=== PATIENT | female | born 1990 | race Caucasian/White ===

== ENCOUNTER 2023-03-07 08:24 | Outpatient (AMB) | payer OTHER, SELFPAY ==
--- NOTE | 2023-03-07 08:29 | A.OFFVIS_ITS ---
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 States both are as bad. States symptoms started about 2 years and has worsen. Patient has tried a cortisone injection with her neurologist about 4-5 months ago with good improvement. Patient is interested in repeat injection. EMG done. Allergies cimetidine [From Tagamet] Allergy (Severe, Verified 03/07/23 08:32) hives montelukast [From Singulair] Allergy (Severe, Verified 03/07/23 08:32) make pt slow penicillin G Allergy (Severe, Verified 03/07/23 08:32) Hives escitalopram [From Lexapro] Allergy (Intermediate, Verified 03/07/23 08:32) twitch morphine Allergy (Intermediate, Verified 03/07/23 08:32) hives HPI HPI Comments History of Present Illness Details Symptoms on/off, about 2 years, progressing though. EMG as below, mild CTS. Bilateral, right handed. Reports numbness 5th, 4th and 1st digit. Numb when holding something for too long. Occasional weakness, trouble opening things. Question thenar eminence flattening? Throbbing in both elbows, will wake her up at night. 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 MSK: Inspection reveals appropriate head and neck positioning. Cervical ROM was full. Spurling's sign negative. Bilateral elbow ROM WNL. No ligamentous laxity or crepitance. No increased effusion. No tenderness. No joint effusion noted. No deformity noted. No intrinsic hand weakness noted. Questioning flat thenar eminence bilateral. Saravanan test mildly positive right. Carpal compression test positive bilateral. Tinel sign positive bilateral elbow. Strength is 5/5 in all muscle groups tested. No increased tone noted. Neurological: Neurologic examination of the upper and lower extremities was nonfocal with intact sensation, muscle stretch reflexes and without focal motor deficits . Villagran?s negative bilaterally. Gait is non-antalgic without loss of balance. Results Reviewed Results Reviewed: I independently reviewed the results of the following: EMG done by Dr. Berger 03/2022 showed mild bilateral CTS. I reviewed records from the following: Neurology Assessment & Plan Assessment & Plan (1) Carpal tunnel syndrome on both sides: Code(s): G56.03 - Carpal tunnel syndrome, bilateral upper limbs (2) Ulnar neuropathy at elbow: Code(s): G56.20 - Lesion of ulnar nerve, unspecified upper limb Plan Previously diagnosed mild bilateral Carpal Tunnel Syndrome based on EMG done last year. Injections provided short-term relief only. Symptoms are progressing. She presents with signs of possible ulnar neuropathy as well. I believe it is reasonable to repeat NCS/EMG again and see if results have progressed. We talked about treatment options from conservative, injections again, versus surgery. She understands that injections are only temporary relief and surgery might provide longer lasting/permanent cure. While waiting for repeat NCS, continue to wear wrist splints especially at night. If there is any tenderness over de Quervain, make apply ice and consider a thumb spica splint Assessment and plan discussed with patient, and patient was agreeable. All questions were answered thoroughly. Odalis Cardenas MD, ABA Board Certified, [place] [employer] and Rehabilitation (ABPMR) Board Certified, [place] Board [employer] Electrodiagnostic [employer] (ABEM) Orders: Orders NE electromyogram (EMG) Today G56.03 - Carpal tunnel syndrome, bilateral upper limbs, G56.20 - Lesion of ulnar nerve, unspecified upper limb NE nerve conduction velocity Today G56.03 - Carpal tunnel syndrome, bilateral upper limbs, G56.20 - Lesion of ulnar nerve, unspecified upper limb Coding Level of Care Code New Pt Level 4 (19268) Diagnoses Carpal tunnel syndrome on both sides G56.03 Ulnar neuropathy at elbow G56.20
[2023-03-07 08:31] VITALS: BMI 39.0
== END 2023-03-07 09:07 | disposition home or self-care (01) ==
PROVIDERS: Visit Provider Physical Medicine & Rehabilitation
DX: G56.03 Carpal tunnel syndrome, bilateral upper limbs (principal); G56.20 Lesion of ulnar nerve, unspecified upper limb
CPT/HCPCS: 99204

== ENCOUNTER → 2023-03-07 08:24 | Outpatient (BNVA) | payer OTHER, SELFPAY | PROVIDERS: Visit Provider Physical Medicine & Rehabilitation ==

== ENCOUNTER 2023-04-03 15:00 | Outpatient (REF) | payer OTHER, SELFPAY ==
--- NOTE | 2023-04-03 15:02 | EMG_ITS ---
Chief complaint: Continued hand pain, right worse than left Reason for referral: Evaluate for carpal tunnel Procedure done: NCS only, compare from previous Precautions and/or limitations: None The limb temperature was monitored continuously and remained between 32-36 degrees C during the performance of the NCS. Nerve Conduction Studies Anti Sensory Summary Table ?Stim Site NR Onset (ms) Norm Onset (ms) Peak (ms) Norm Peak (ms) O-P Amp (?V) Norm O-P Amp Site1 Site2 Delta-0 (ms) Dist (cm) Evin (m/s) Norm Evin (m/s) Left Median Anti Sensory (2nd Digit) Wrist ? 2.7 3.6 <3.6 46.4 >10 Wrist 2nd Digit 2.7 14.0 52 Right Median Anti Sensory (2nd Digit) Wrist ? 3.1 3.7 <3.6 14.2 >10 Wrist 2nd Digit 3.1 14.0 45 Right Radial Anti Sensory (Thumb) Forearm ? 1.7 2.1 <3.1 39.9 Forearm Thumb 1.7 0.0 Left Ulnar Anti Sensory (5th Digit) Wrist ? 2.3 2.9 <3.7 24.6 >15.0 Wrist 5th Digit 2.3 14.0 61 Right Ulnar Anti Sensory (5th Digit) Wrist ? 1.7 3.0 <3.7 15.3 >15.0 Wrist 5th Digit 1.7 14.0 82 Motor Summary Table ?Stim Site NR Onset (ms) Norm Onset (ms) O-P Amp (mV) Norm O-P Amp iAmp (mV) Amp (1st) (%) Site1 Site2 Delta-0 (ms) Dist (cm) Evin (m/s) Norm Evin (m/s) Left Median Motor (Abd Poll Brev) Wrist ? 4.3 <3.9 8.0 >4.5 9.3 100.0 Elbow Wrist 3.3 19.0 58 >45 Elbow ? 7.6 6.8 8.3 85.0 Right Median Motor (Abd Poll Brev) Wrist ? 4.5 <3.9 5.6 >4.5 6.3 100.0 Elbow Wrist 3.1 18.0 58 >45 Elbow ? 7.6 9.2 10.5 164.3 Left Ulnar Motor (Abd Dig Minimi) Wrist ? 2.3 <3.0 8.5 >5 9.3 100.0 B Elbow Wrist 2.6 16.0 62 >45 B Elbow ? 4.9 8.4 9.3 98.8 A Elbow B Elbow 1.4 10.0 71 >45 A Elbow ? 6.3 8.1 9.0 95.3 Right Ulnar Motor (Abd Dig Minimi) Wrist ? 2.4 <3.0 5.6 >5 6.2 100.0 B Elbow Wrist 2.8 16.0 57 >45 B Elbow ? 5.2 5.5 6.2 98.2 A Elbow B Elbow 1.2 10.0 83 >45 A Elbow ? 6.4 5.4 6.1 96.4 FINDINGS: Bilateral median motor nerves showed prolonged distal latency, normal amplitude and normal conduction velocity. Evidence of possible right Alfredo Vlad anastomosis was seen, which is a normal anatomic variant. Bilateral median sensory nerve showed prolonged peak latency. All other nerves tested were within normal. IMPRESSION: 1. This is an abnormal study. 2. There is electrodiagnostic evidence for bilateral moderate-severe median neuropathy at the wrist, consistent with Carpal Tunnel Syndrome. 3. There is no electrodiagnostic evidence for ulnar neuropathy. CLINICAL COMMENT: Shows progression of Carpal Tunnel Syndrome as compared to last year. Patient will be referred to Dr. De Luna for discussion of surgical management. Thank you for your kind referral. Odalis Cardenas MD, ABA Board Certified, [place] Board [employer] and [employer] (ABPMR) Board Certified, [place] Board [employer] Electrodiagnostic [employer] (ABEM) CODIN MTDD
== END 2023-04-03 15:01 | disposition home or self-care (01) ==
LOC: HO.NEURO 15:00
PROVIDERS: Visit Provider Physical Medicine & Rehabilitation
DX: G56.03 Carpal tunnel syndrome, bilateral upper limbs (principal); G56.20 Lesion of ulnar nerve, unspecified upper limb
CPT/HCPCS: 95886; 95911

== ENCOUNTER → 2023-04-03 15:02 | Outpatient (BNV) | payer OTHER, SELFPAY | PROVIDERS: Visit Provider Physical Medicine & Rehabilitation | DX: G56.13 Other lesions of median nerve, bilateral upper limbs (principal); G56.03 Carpal tunnel syndrome, bilateral upper limbs | CPT/HCPCS: 95911 ==

== ENCOUNTER 2023-05-29 08:26 | Outpatient (AMB) | payer OTHER, SELFPAY ==
[2023-05-29 08:33] VITALS: BMI 39.0
--- NOTE | 2023-05-29 08:33 | A.OFFVIS_ITS ---
Intake Vital Signs 05/29/23 08:33 Height 5 ft 3 in Weight 220 lb BMI 39.0 Intake Visit Reasons: o/v- B/L CTS INJ Intake Note: Lydia 32 yr old female presents today for her CTS bilateral hand injection. States she is aware she needs surgery however she would like to gave an injection in bilateral hands until she is more prepare after the holidays and has to arrange care for her son who is autistic. She also has an appt with Dr. De Luna to discuss surgery in June. Allergies cimetidine [From Tagamet] Allergy (Severe, Verified 05/29/23 08:39) hives montelukast [From Singulair] Allergy (Severe, Verified 05/29/23 08:39) make pt slow penicillin G Allergy (Severe, Verified 05/29/23 08:39) Hives escitalopram [From Lexapro] Allergy (Intermediate, Verified 05/29/23 08:39) twitch morphine Allergy (Intermediate, Verified 05/29/23 08:39) hives Medication List - Last Reconciled 05/29/23 by Odalis Cardenas MD aspirin 162 mg PO DAILY celecoxib (Celebrex) 50 mg PO BID fluoxetine (Prozac) 40 mg PO DAILY HPI HPI Comments History of Present Illness Details She would like to have injection bilateral today. She's had this before without complications, from Neurology. EMG done by me: IMPRESSION: 1. This is an abnormal study. 2. There is electrodiagnostic evidence f or bilateral moderate-severe median neuropathy at the wrist, consistent with Carpal Tunnel Syndrome. 3. There is no electrodiagnostic evidenc e for ulnar neuropathy. CLINICAL COMMENT: Shows progression of Carpal Tunnel Syndrome as compared to last year. 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 Patient places right hand palm up. Wrist is cleansed with betadine solution. A 25 gauge needle is inserted just ulnar to the palmaris longus tendon and at the proximal wrist crease. The needle is inserted at a 30- degree angle and directed towards the ring finger. A solution containing 20mg Kenalog is injected. Same procedure repeated for left side Patient tolerated procedure well without complications. Post-injection instructions given. 48519-[id number] Tunnel Injection, therapeutic (Bilateral, modifier 50) All charges added?: Procedure code (CPT) selection complete Office Meds triamcinolone acetonide 40 mg/mL suspension for injection Performing Provider: Odalis Cardenas MD Performing Location: [facility] [place] [facility] Documented (not given) by: Odalis Cardenas MD on 05/29/23 09:01 Dose Route Admin Location Dispensed Lot Number Expiration Date NDC General Service Officer 40 mg Tendon Sheath Inj. mL Assessment & Plan Assessment & Plan (1) Carpal tunnel syndrome on both sides: Code(s): G56.03 - Carpal tunnel syndrome, bilateral upper limbs Plan Tolerated procedure well. She is to meet Dr. De Luna in June. Assessment and plan discussed with patient, and patient was agreeable. All questions were answered thoroughly. Odalis Cardenas MD, ABA Board Certified, [place] Board [employer] and Rehabilitation (ABPMR) Board Certified, [place] Board [employer] Electrodiagnostic Medicine (ABEM) Orders: Orders Trigger Point Injection Today G56.03 - Carpal tunnel syndrome, bilateral upper limbs, M79.18 - Myalgia, other site Medications: New triamcinolone acetonide 40 mg Tendon Sheath Inj. ONCE 1 mL 0RF G56.03 - Carpal tunnel syndrome, bilateral upper limbs, M79.18 - Myalgia, other site Coding Level of Care Code Procedure Only Diagnoses Carpal tunnel syndrome on both sides G56.03 CPT Codes Therapeutic Injection - Ther Injection 3: [id number]-Kyuxvx Tunnel Injection, therapeutic ([id number])
== END 2023-05-29 09:03 | disposition home or self-care (01) ==
PROVIDERS: Visit Provider Physical Medicine & Rehabilitation
DX: G56.03 Carpal tunnel syndrome, bilateral upper limbs (principal)
CPT/HCPCS: 20526

== ENCOUNTER → 2023-05-29 08:26 | Outpatient (BNVA) | payer OTHER, SELFPAY | PROVIDERS: Visit Provider Physical Medicine & Rehabilitation | DX: G56.03 Carpal tunnel syndrome, bilateral upper limbs (principal) | CPT/HCPCS: 20526; J3301 ==

== ENCOUNTER 2023-06-18 15:02 | Outpatient (AMB) | payer OTHER, SELFPAY ==
[2023-06-18 15:06] VITALS: BMI 39.0
--- NOTE | 2023-06-18 15:06 | MHC.OFFVIS ---
Intake Vital Signs 06/18/23 15:06 Height 5 ft 3 in Weight 220 lb BMI 39.0 Intake Visit Reasons: OV- B/L CTS Dx Surgery Intake Note: Lydia 32 yr old female presents today for a follow up visit s/p bilateral CTS injection with Dr. De Luna. Right hand is worse. States injection did not help and she would like to discuss surgical intervention. EMG done. Allergies cimetidine [From Tagamet] Allergy (Severe, Verified 06/18/23 15:13) hives montelukast [From Singulair] Allergy (Severe, Verified 06/18/23 15:13) make pt slow penicillin G Allergy (Severe, Verified 06/18/23 15:13) Hives escitalopram [From Lexapro] Allergy (Intermediate, Verified 06/18/23 15:13) twitch morphine Allergy (Intermediate, Verified 06/18/23 15:13) hives HPI OV- B/L CTS Dx Surgery HPI Details Lydia is a 32 year old right hand dominant woman who presents for a NCS review of her bilateral hand numbness. She complains of numbness in the thumb, index and middle fingers bilaterally, R>L. Symptoms intermittent, but daily, worse at night. 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 She says she has numbness in her small fingers, mostly at night, and she has been sleeping with wrist braces on, which helps her somewhat. She has a hx of carpal tunnel injections in the past, her most recent was done on 05/29/[address] Son. She says these most recent injections were not helpful and she would like to discuss surgery. She had her most recent injection as she has a young autistic son and wanted some relief before she could meet with me to discuss surgery. 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 Review of Systems Const All systems reviewed & are unremarkable except as noted in HPI and below Physical Exam Vital Signs: BMI result Body Mass Index 39.0 Const General: cooperative, healthy appearing and no acute distress Orientation/consciousness: patient oriented x3 HEENT Head: Yes normocephalic and Yes atraumatic Eyes EOM: EOMs intact bilaterally Resp Effort & Inspection: normal respiratory effort and able to speak in complete sentences Cardio Jugular venous distension: no JVD Skin General skin exam: turgor normal Rashes: no rashes Neuro General: patient oriented x3 Extrem Other: Evaluation of Bilateral Upper Extremity: The patient is alert, oriented, and in no acute distress Neuro: Median, Ulnar, Radial nerves motor and sensory intact and sensation is normal to the tips of all digits today in clinic No thenar or intrinsic wasting Good APB muscle belly firing and good finger cross Vascular: Cap refill brisk ROM: She can make a fist and extend all her digits No locking or catching Skin: No lacerations or abrasions. General: No Ecchymosis. No Erythema or evidence of infection. Nerve Conduction Study: IMPRESSION: 1. This is an abnormal study. 2. There is electrodiagnostic evidence for bilateral moderate-severe median neuropathy at the wrist, consistent with Carpal Tunnel Syndrome. 3. There is no electrodiagnostic evidence for ulnar neuropathy. CLINICAL COMMENT: Shows progression of Carpal Tunnel Syndrome as compared to last year. Odalis Cardenas MD, ABA 04/04/23 Psych Appearance: grossly normal Affect: normal affect Attitude: cooperative Assessment & Plan Assessment & Plan (1) Carpal tunnel syndrome on both sides: Code(s): G56.03 - Carpal tunnel syndrome, bilateral upper limbs Plan Assessment & Plan: 1. Right carpal tunnel syndrome, moderate-severe Symptoms intermittent, but daily, worse at night S/P steroid injection on 05/29/[address] Son I educated her about this condition I discussed operative and non-operative treatment options The patient would like to proceed with surgery, beginning with the right side The risks and benefits of operative treatment were discussed with the patient and the patient wishes to proceed with surgery. These risks include, but are not limited to risk of damage to blood vessels, nerves, tendons, infection, recurrence, incomplete relief of preoperative symptoms, persistent pain, possible need for further surgery and the risks associated with regional blocks and anesthesia. The plan is to take the patient to the operating room sometime in the next few months for the following procedures: 1. Right carpal tunnel release, under local All of the preoperative paperwork including the consent was reviewed today. All the patient's questions were answered. The patient understands that they will be contacted by our flight crew scheduler soon to schedule this procedure. As she had bilateral injections done on 05/29/23, she should have surgery no sooner than the beginning of August. She would like a appointment if possible. 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 She denies Diabetes, blood thinners, asthma, heart, lung, kidney issues She takes 300mg aspirin daily due to Raynaud's disease 2. Left carpal tunnel syndrome, moderate-severe Symptoms intermittent, but daily, worse at night S/P injection on 05/29/[address] Son She will wear her velcro wrist brace at night We can discuss treatment for her left hand when her right side has recovered Scribed for Pilar De Luna MD by Pasha Duke, medical billing manager, on 06/18/23 at 3:45 PM, EST. Coding Level of Care Code New Pt Level 4 (52082) Diagnoses Carpal tunnel syndrome on both sides G56.03
== END 2023-06-18 16:02 | disposition home or self-care (01) ==
PROVIDERS: Visit Provider Orthopaedic Surgery
DX: G56.03 Carpal tunnel syndrome, bilateral upper limbs (principal)
CPT/HCPCS: 99214

== ENCOUNTER → 2023-06-18 15:02 | Outpatient (BNVA) | payer OTHER, SELFPAY | PROVIDERS: Visit Provider Orthopaedic Surgery | DX: G56.03 Carpal tunnel syndrome, bilateral upper limbs (principal) | CPT/HCPCS: 99212 ==

== ENCOUNTER 2023-08-29 08:11 | Day surgery (SDC) | payer OTHER, SELFPAY ==
--- NOTE | 2023-08-29 08:52 | MHC.SHP ---
Pre-Procedural Eval Section A - 24 Hr Update-Section A only Date of Service: 08/29/23 The patient is an INPATIENT: No Changes since office visit: No Cold of Flu in the past 2 weeks, No New Medical Problems, No Changes in Medication and No Patient answered all questions The patient has been examined within 24 hours of the surgical procedure. The History & Physical has been completed within 30 days and I have reviewed it.: Yes Section B - Complete if H&P > 30 days Chief Complaint: Carpal tunnel syndrome, right upper limb Allergies: Allergies Allergy/AdvReac Type Severity Reaction Status Date / Time cimetidine [From Tagamet] Allergy Severe hives Verified 06/18/23 15:13 montelukast [From Singulair] Allergy Severe make pt Verified 06/18/23 15:13 slow penicillin G Allergy Severe Hives Verified 06/18/23 15:13 escitalopram [From Lexapro] Allergy Intermediate twitch Verified 06/18/23 15:13 morphine Allergy Intermediate hives Verified 06/18/23 15:13 Exam Exam Comment: Right carpal tunnel syndrome Plan Diagnosis/Plan: Unchanged I have reviewed the history and physical and performed a pertinent physical examination on my patient. No changes have occurred unless specified. Time Spent With Patient Time: Total time managing care of this patient today ____ minutes.
--- NOTE | 2023-08-29 08:53 | W.PM.OPN ---
Operative Note Operative Note Date of Service: 08/29/23 Narrative: Preop diagnosis: 1. Right Carpal tunnel syndrome Postop diagnosis: same Procedure: 1. Right Carpal tunnel release Surgeon: Pilar De Luna MD Anesthesia: local block using 1% lidocaine with epinephrine Findings: Thickened transverse carpal ligament. EBL: Less than 5 mL Specimens: None Complications: None Disposition: Brought to recovery room in stable condition Plan: Follow-up for 10-14 days for wound check and suture removal Indications: The patient is 33 years old, with right carpal tunnel syndrome that has been unresponsive to nonoperative management. The risks and benefits of operative treatment including but not limited to risk of damage to blood vessels, nerves, tendons, infection, persistent pain, persistent symptoms, or possible need for additional surgery were discussed with the patient and the patient wishes to proceed with surgery. Procedure: Once consent was obtained a local block was performed using a combination of 1% lidocaine with epinephrine. The patient was then brought back to the operating suite and placed on the operative table in supine position. The right upper extremity was prepped and draped in a standard surgical fashion. Once assured that we had a good block, a 2.0 cm longitudinal incision was made centered over the carpal tunnel. The incision was made through the skin to the subcutaneous tissues using a #15 blade. Dissection was made down to the level of the transverse carpal ligament with care being taken to protect the palmar cutaneous nerve. Once the transverse carpal ligament was clearly visualized, a longitudinal incision was made in the transverse carpal ligament 1st using a #15 blade, then using tenotomy scissors under direct visualization. Care was taken to look for and protect the motor branch of the median nerve when seen in this area. Once satisfied with our carpal tunnel release the wound was copiously irrigated with normal saline and hemostasis was obtained with a brief period of local pressure. The skin edges were reapproximated with some 5.0 nylon suture material and a sterile dressing was applied. The patient appears to have tolerated the procedure well and with no complications. All digits were well vascularized at the conclusion of the case.
[2023-08-29 09:17] VITALS: BMI 39.0
[2023-08-29 09:22] VITALS: BP 149/90; PULSE 80; RESP 18; TEMP 36.7; O2SAT 97
[2023-08-29 10:32] VITALS: BP 139/85; PULSE 75; RESP 18; TEMP 35.6
== END 2023-08-29 11:01 | disposition home or self-care (01) ==
PROVIDERS: PCP Internal Medicine; Visit Provider Orthopaedic Surgery
PROC: (CPT 64721; principal; 2023-08-29 09:30)
DX: G56.01 Carpal tunnel syndrome, right upper limb (principal); R20.0 Anesthesia of skin; Z88.0 Allergy status to penicillin; Z88.5 Allergy status to narcotic agent; Z88.8 Allergy status to other drugs, medicaments and biological substances
CPT/HCPCS: 64721; J0171

== ENCOUNTER → 2023-08-29 08:11 | Outpatient (BNV) | payer OTHER, SELFPAY | PROVIDERS: PCP Internal Medicine; Visit Provider Orthopaedic Surgery | DX: G56.01 Carpal tunnel syndrome, right upper limb (principal) | CPT/HCPCS: 64721 ==

== ENCOUNTER 2023-09-11 12:56 | Outpatient (AMB) | payer OTHER, SELFPAY ==
--- NOTE | 2023-09-11 12:58 | MHC.OFFVIS ---
Intake Intake Visit Reasons: PO RT CTR 08/29/23 AR Intake Note: Lydia 33 yr old female presents today for her PO visit for her right hand CTR 08/29/23 AR. States symptoms have improved and is doing well. Sutures removed in office and steri strips applied. Allergies cimetidine [From Tagamet] Allergy (Severe, Verified 09/11/23 12:58) hives montelukast [From Singulair] Allergy (Severe, Verified 09/11/23 12:58) make pt slow penicillin G Allergy (Severe, Verified 09/11/23 12:58) Hives escitalopram [From Lexapro] Allergy (Intermediate, Verified 09/11/23 12:58) twitch morphine Allergy (Intermediate, Verified 09/11/23 12:58) hives HPI PO RT CTR 08/29/23 AR HPI Details Lydia is a 33 year old right hand dominant woman who returns S/P right carpal tunnel release, DOS: 08/29/23. She says she is doing well and her sensation is improving and now feels normal. She is happy with the results of her surgery. She says she has some weakness & soreness in her wrist, but good resolution of her nighttime symptoms. 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 She says she has numbness in her small fingers, mostly at night, and she has been sleeping with wrist braces on, which helps her somewhat. She has a hx of carpal tunnel injections in the past, her most recent was done on 05/29/[address] Son. She says these most recent injections were not helpful and she would like to discuss surgery. 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 Sutures removed and Steri-Strips applied She can make a fist and extend al her digits Sensation is improved and now normal to all digits Cap refill is brisk Nerve Conduction Study: IMPRESSION: 1. This is an abnormal study. 2. There is electrodiagnostic evidence for bilateral moderate-severe median neuropathy at the wrist, consistent with Carpal Tunnel Syndrome. 3. There is no electrodiagnostic evidence for ulnar neuropathy. CLINICAL COMMENT: Shows progression of Carpal Tunnel Syndrome as compared to last year. Odalis Cardenas MD, ABA 04/04/23 Psych Appearance: grossly normal Affect: normal affect Attitude: cooperative Assessment & Plan Assessment & Plan (1) Carpal tunnel syndrome of left wrist: Code(s): G56.02 - Carpal tunnel syndrome, left upper limb (2) History of carpal tunnel surgery of right wrist: Code(s): Z98.890 - Other specified postprocedural states Plan Assessment & Plan: 1. 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 2. Left carpal tunnel syndrome, moderate-severe Symptoms intermittent, but daily, worse at night S/P injection on 05/29/[address] Son I educated her about this condition I discussed operative and non-operative treatment options The patient would like to have surgery later on this year. She will make an appointment to follow up and discuss treatment sometime in February or March Scribed for Pilar De Luna MD by Pasha Duke, medical receptionist assistant, on 09/11/23 at 1:20 PM, EST. Coding Level of Care Code Global (48583) Diagnoses Carpal tunnel syndrome of left wrist G56.02 History of carpal tunnel surgery of right wrist Z98.890
== END 2023-09-11 13:31 | disposition home or self-care (01) ==
PROVIDERS: PCP Internal Medicine; Visit Provider Orthopaedic Surgery
DX: G56.02 Carpal tunnel syndrome, left upper limb (principal); Z98.890 Other specified postprocedural states
CPT/HCPCS: 99024

== ENCOUNTER → 2023-09-11 12:56 | Outpatient (BNVA) | payer OTHER, SELFPAY | PROVIDERS: PCP Internal Medicine; Visit Provider Orthopaedic Surgery | DX: G56.02 Carpal tunnel syndrome, left upper limb (principal); Z48.811 Encounter for surgical aftercare following surgery on the nervous system; Z86.69 Personal history of other diseases of the nervous system and sense organs; Z98.890 Other specified postprocedural states | CPT/HCPCS: 99212 ==

== ENCOUNTER 2023-11-19 10:43 | Outpatient (AMB) | payer OTHER, SELFPAY ==
--- NOTE | 2023-11-19 10:45 | MHC.OFFVIS ---
Intake Visit Reasons: PO RT CTR 08/29/23 AR-patient hac Intake Note: Lydia 33 yr old female presents today for her PO visit for her RT CTR 08/29/23 AR. States she is in more pain than she was before her surgery. She states the pain at night has subsided but states she isnt able to use her hand as much especially with gripping and opening things. She states she has been using the wrist braces when she starts feeling the pain start but it isnt helping. She states its more of a discomfort feeling rather than the pain she had before the procedure. Allergies cimetidine [From Tagamet] Allergy (Severe, Verified 11/19/23 10:45) hives montelukast [From Singulair] Allergy (Severe, Verified 11/19/23 10:45) make pt slow penicillin G Allergy (Severe, Verified 11/19/23 10:45) Hives escitalopram [From Lexapro] Allergy (Intermediate, Verified 11/19/23 10:45) twitch morphine Allergy (Intermediate, Verified 11/19/23 10:45) hives HPI HPI PO RT CTR 08/29/23 AR-patient hac: Details: Lydia is a 33 year old right hand dominant woman who returns with complaints of right wrist pain & weakness. She is S/P right carpal tunnel release, DOS: 08/29/23. She complains of still having pain in her palm when gripping objects. She says this pain radiates up into her elbow at times. She has weakness and is unable to tube man or open things. Her sensation in her right hand is normal, which she is happy about. She admits she fell onto her hands in the snow a few days after surgery. She is unsure of the date but says she still had sutures in place. She continues to have intermittent but daily numbness in her left hand. She says this has worsened in the last few months since she has been overcompensating for her right hand. She denies having constant numbness yet in her left hand. 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 She says she has numbness in her small fingers, mostly at night, and she has been sleeping with wrist braces on, which helps her somewhat. She has a hx of carpal tunnel injections in the past, her most recent was done on 05/29/[address] Son. She says these most recent injections were not helpful and she would like to discuss surgery. 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 Physical Exam Const General: cooperative, healthy appearing and no acute distress Orientation/consciousness: patient oriented x3 HEENT Head: Yes normocephalic and Yes atraumatic Eyes EOM: EOMs intact bilaterally Resp Effort & Inspection: normal respiratory effort and able to speak in complete sentences Cardio Jugular venous distension: no JVD Skin General skin exam: turgor normal Rashes: no rashes Neuro General: patient oriented x3 Extrem Other: Evaluation of Right Upper Extremity: The patient is alert, oriented, and in no acute distress Neuro: Median, Ulnar, Radial nerves motor and sensory intact and sensation is normal to the tips of all digits today in clinic No thenar or intrinsic wasting Good APB muscle belly firing and good finger cross Vascular: Cap refill brisk ROM: She can make a fist and extend all her digits No locking or catching She does have some mild tenderness to palpation over the incision site and also over the pillars both ulnarly and radially. The wound appears to be well healed with no evidence of infection, and no swelling. It is normal in appearance for 3 months postop. No tenderness over the 1st dorsal compartment Negative Saravanan test bilaterally She appears to have normal wrist range of motion without appreciable discomfort, other than having some pain with hyper extension of the wrist and loading, as when getting up from a chair or pushing up from a table. Nerve Conduction Study: IMPRESSION: 1. This is an abnormal study. 2. There is electrodiagnostic evidence for bilateral moderate-severe median neuropathy at the wrist, consistent with Carpal Tunnel Syndrome. 3. There is no electrodiagnostic evidence for ulnar neuropathy. CLINICAL COMMENT: Shows progression of Carpal Tunnel Syndrome as compared to last year. Odalis Cardenas MD, ABA 04/04/23 Psych Appearance: grossly normal Affect: normal affect Attitude: cooperative Assessment & Plan Assessment & Plan (1) Right wrist pain: Code(s): M25.531 - Pain in right wrist Category: Medical (2) Right hand pain: Code(s): M79.641 - Pain in right hand Category: Medical (3) Carpal tunnel syndrome of left wrist: Code(s): G56.02 - Carpal tunnel syndrome, left upper limb Category: Medical (4) History of carpal tunnel surgery of right wrist: Code(s): Z98.890 - Other specified postprocedural states Category: Surgical Plan Assessment & Plan: 1. Right hand & wrist pain, S/P carpal tunnel release DOS: 08/29/23 Her surgical site appears to be healing well. I educated her about this condition I ordered OT hand therapy to work on Desensitization & normalizing function She will work on ROM exercises at home She will discontinue wearing her wrist brace at night She will follow up in 6-8 weeks to see how she is doing 2. Right carpal tunnel syndrome, S/P release DOS: 08/29/23 Pre-operative symptoms intermittent, but daily, worse at night Now with normal sensation 3. Left carpal tunnel syndrome, moderate-severe Symptoms intermittent, but daily, worse at night S/P injection on 05/29/[address] Son I educated her about this condition I discussed operative and non-operative treatment options The patient would like to have surgery later on this year. She will make an appointment to follow up and discuss treatment sometime in February or March Scribed for Pilar De Luna MD by selena Victoria, on 11/19/23 at 11:15 AM, EST. Scribe Plan - Not visible on output: Scribed for Pilar De Luna MD by selena Victoria scribe, on [ ] at [ ], EST. Coding Level of Care Code Global (52799) Diagnoses Right wrist pain M25.531 Right hand pain M79.641 Carpal tunnel syndrome of left wrist G56.02 History of carpal tunnel surgery of right wrist Z98.890
== END 2023-11-19 11:32 | disposition home or self-care (01) ==
PROVIDERS: PCP Internal Medicine; Visit Provider Orthopaedic Surgery
DX: M25.531 Pain in right wrist (principal); M79.641 Pain in right hand; G56.02 Carpal tunnel syndrome, left upper limb; Z98.890 Other specified postprocedural states
CPT/HCPCS: 99024

== ENCOUNTER → 2023-11-19 10:43 | Outpatient (BNVA) | payer OTHER, SELFPAY | PROVIDERS: PCP Internal Medicine; Visit Provider Orthopaedic Surgery | DX: M25.531 Pain in right wrist (principal); M79.641 Pain in right hand; G56.02 Carpal tunnel syndrome, left upper limb; Z98.890 Other specified postprocedural states | CPT/HCPCS: 99212 ==

== ENCOUNTER 2023-12-04 10:32 | Outpatient (REF) | payer OTHER, SELFPAY ==
--- NOTE | ~2023-12-04 | XR_ITS ---
EXAMINATION: XR HAND, LEFT CLINICAL INFORMATION: Pain left hand. COMPARISON: None available. TECHNIQUE: PA, lateral, and oblique views of the left hand. FINDINGS: Bone mineralization is normal. No acute displaced fracture appreciated. Ulnar minus variance. Mild degenerative changes first carpometacarpal joint. XR/XR hand LT min 3V IMPRESSION: 1. Ulnar minus variance. 2. Mild degenerative changes.
== END 2023-12-04 10:33 | disposition home or self-care (01) ==
LOC: HO.HOSX 10:32
PROVIDERS: Visit Provider Orthopaedic Surgery
DX: M79.642 Pain in left hand (principal); S60.222A Contusion of left hand, initial encounter; G56.02 Carpal tunnel syndrome, left upper limb; X58.XXXA Exposure to other specified factors, initial encounter; Y93.9 Activity, unspecified; Y92.9 Unspecified place or not applicable; Y99.9 Unspecified external cause status; Z98.890 Other specified postprocedural states; Z91.81 History of falling
CPT/HCPCS: 73130; 99212

== ENCOUNTER 2023-12-04 14:32 | Outpatient (AMB) | payer OTHER, SELFPAY ==
--- NOTE | 2023-12-04 15:11 | A.OFFVIS_ITS ---
Intake Visit Reasons: Newprob-Left hand pain-Fell on 11/29/23 Intake Note: Lydia is a 33 year old right hand dominant female who presents today for a new problem with complaints of Left hand pain. Fell on 11/29/23. She was seen in [facility] ED on 11/29/23 and placed in a thumb splint. She wore the splint for 3 days and noticed it feeling better so she discontinued use of it. Patient reports she was walking into her house and slipped and fell and landing on her right hand. She has soreness with pressing down or squeezing her hand but has been finding relief with ice and ibuprofen. She has been doing home exercises for her left hand that she says also helped her. She is here today to get cleared for work and make sure she does not have a fracture. She is on light duty but will like to return to full duty. Hx of Right CTR 08/29/23 Allergies cimetidine [From Tagamet] Allergy (Severe, Verified 12/04/23 15:17) hives montelukast [From Singulair] Allergy (Severe, Verified 12/04/23 15:17) make pt slow penicillin G Allergy (Severe, Verified 12/04/23 15:17) Hives escitalopram [From Lexapro] Allergy (Intermediate, Verified 12/04/23 15:17) twitch morphine Allergy (Intermediate, Verified 12/04/23 15:17) hives HPI HPI Newprob-Left hand pain-Fell on 11/29/23: Details: Lydia is a 33 year old right hand dominant woman who returns with a new complaint of left hand pain, S/P fall, DOI: 11/29/23. She fell on 11/29/23, landing on her left hand, she was seen at [facility] ED and given a thumb spica splint. She says her pain improved within a few days and she discontinued her splint. She complains of new pain in her hand primarily with squeezing or applying pressure. She has been managing this with ibuprofen and ice, and doing at-home exercises. She wants to discuss her return to work and make sure she does not have a new hand injury. She works as a [email or web address]. 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 Review of Systems Const All systems reviewed & are unremarkable except as noted in HPI and below Physical Exam Const General: no acute distress and alert Orientation/consciousness: patient oriented x3 Neuro General: patient oriented x3 Extrem Other: Evaluation of Left Upper Extremity: The patient is alert, oriented, and in no acute distress Neuro: Median, Ulnar, Radial nerves motor and sensory intact and sensation is normal to the tips of all digits Vascular: Cap refill brisk ROM: She complains of pain primarily in the thenar aspect of her thumb Resolving ecchymosis in the thenar aspect of her thumb No swelling No evidence of injury or lacerations She can make a fist with good strength & no pain, she is able to pinch against her thumb Smooth wrist ROM Non-tender over the Distal radius, Distal ulna, & DRUJ No snuffbox or scaphoid tubercle tenderness No tenderness over the thumb MCP joint MCP joint stable on exam No a1 eduardo tenderness Radiographs: 3 views of her left hand were taken and viewed by me today in clinic. Her wrist was seen held in a position of significant radial deviation. There are no fractures, dislocations, or arthritic changes. Nerve Conduction Study: IMPRESSION: 1. This is an abnormal study. 2. There is electrodiagnostic evidence for bilateral moderate-severe median neuropathy at the wrist, consistent with Carpal Tunnel Syndrome. 3. There is no electrodiagnostic evidence for ulnar neuropathy. CLINICAL COMMENT: Shows progression of Carpal Tunnel Syndrome as compared to last year. Odalis Cardenas MD, ABA 04/04/23 Psych Appearance: grossly normal Affect: normal affect Attitude: cooperative Assessment & Plan Assessment & Plan (1) Contusion of left hand: Code(s): S60.222A - Contusion of left hand, initial encounter Category: Medical (2) Left hand pain: Code(s): M79.642 - Pain in left hand Category: Medical (3) Carpal tunnel syndrome of left wrist: Code(s): G56.02 - Carpal tunnel syndrome, left upper limb Category: Medical (4) History of carpal tunnel surgery of right wrist: Code(s): Z98.890 - Other specified postprocedural states Category: Surgical Plan Assessment & Plan: 1. 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 Right hand & wrist pain, S/P carpal tunnel release DOS: 08/29/23 This is improving, and was not really evaluated today. She will continue to work with OT on desensitization & normalizing function She will work on ROM exercises at home She will discontinue wearing her wrist brace at night She will follow up in 4-6 weeks to see how she is doing, as scheduled 3. Right carpal tunnel syndrome, S/P release DOS: 08/29/23 Pre-operative symptoms intermittent, but daily, worse at night Now with normal sensation 4. Left carpal tunnel syndrome, moderate-severe Symptoms intermittent, but daily, worse at night S/P injection on 05/29/[address] Son I educated her about this condition I discussed operative and non-operative treatment options The patient would like to have surgery later on this year. She will make an appointment to follow up and discuss treatment sometime in February or March Scribed for Pilar De Luna MD by Pasha Duke, medical aides teacher, on 12/04/23 at 3:30 PM, EST. Orders: Orders XR hand LT min 3V Today M79.642 - Pain in left hand Scribe Plan - Not visible on output: Scribed for Pilar De Luna MD by Pasha Duke, medical aides teacher, on [ ] at [ ], EST. Coding Level of Care Code Est Pt Level 3 (26073) Diagnoses Contusion of left hand S60.222A Left hand pain M79.642 Carpal tunnel syndrome of left wrist G56.02 History of carpal tunnel surgery of right wrist Z98.890
== END 2023-12-04 15:43 | disposition home or self-care (01) ==
PROVIDERS: PCP Internal Medicine; Visit Provider Orthopaedic Surgery
DX: S60.222A Contusion of left hand, initial encounter (principal); M79.642 Pain in left hand; G56.02 Carpal tunnel syndrome, left upper limb
CPT/HCPCS: 99213

== ENCOUNTER 2023-12-13 10:30 | Outpatient (RCR) | payer OTHER, SELFPAY ==
--- NOTE | 2023-11-22 14:14 | MHC.OT.EP ---
[address] [phone] Occupational Therapy Plan of Care Patient Name: Lydia Logan Date of Evaluation: 11/22/23 Diagnosis: S/P R CTR Pain Location: PAINFREE AT REST 6-7/10 VOLAR WRIST Pain Score: 0-7/10 Pain Scale Used: Numeric (0 - 10) Aggravating Factors: LIFTING, WEIGHT BEARING, SQUEEZING Alleviating Factors: USING THC/CBD CREAM, RELIEF WITH COLD/ HEAT, NSAID (FOR KNEE), TYLENOL Assessment: MS LOGAN IS 12 WEEKS POST OP RIGHT CTR WITH DR PINEDA ON 08/29/23. 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 A 27% LIMITATION IS REPORTED PER THE QUICK DASH ASSESSMENT. SHE WOULD BENEFIT FROM ONGOING SKILLED OT TO ADDRESS STRENGTH, HYPERSENSITIVITY, SCAR MOBILIZATION, PAIN, INFLAMMATION AND IMPROVE QOL. Frequency and Duration: The patient will be seen 2X/WEEK FOR 4 WEEKS Short Term Goals: IND HEP IND USE OF COLD MODALITIES IND JT PROTECTION/ ACTIVITY MODIFICATIONS IND SCAR MOBILIZATION Longterm Goals: R GROSS GRASP >40 POUNDS REPORT <3/10 PAIN WITH IADLs AND LIFTING >20 POUNDS TOLERATE VARIOUS TEXTURES TO R PALM FOR >8 MINS INCLUDING VIBRATION, ROUGH TEXTURES QUICK DASH <10% Treatment Plan: Therapeutic Exercise Therapeutic Activity Home Exercise Program Splinting Neuro Re-ed Patient Education Desensitization/Sensory Re-ed Edema Control ADL Training Ultrasound NMES Iontophoresis Paraffin Fluidotherapy MHP Cold Packs Joint Mobilization Soft Tissue Mobilization Kinesiotaping Other (see comments) Electronically Signed By: JOSÉ MIGUEL HSEARER OTR/L Please Sign and return to therapist. Thank you once again for your referral.
--- NOTE | 2024-01-06 11:32 | MHC.OT.DC ---
[address] [phone] F: [phone] Occupational Therapy Discharge Note Patient Name: Lydia Logan Provider: Pilar De Luna Diagnosis: S/P R CTR Date of Surgery: 08/29/23 Date of Evaluation: 11/22/23 Date of Discharge: 01/06/24 Treatments to Date: 4 Cancellations to Date: 0 No Shows to Date: 0 Discharge Status: Improved Function Independent with HEP Discharge Summary: MS LOGAN HAS PROGRESSED WELL WITH HER THERAPY. SHE IS IND WITH HER HEP AND DESENSITIZATION TECHNIQUES. READY FOR D/C TO A HOME BASED PROGRAM. D/C SKILLED OT SERVICES. Electronically Signed By: JOSÉ MIGUEL SHEARER OTR/Betsy Reviewed/agree with student documentation: N/A Therapist: Please Sign and return to therapist, thank you for your referral.
== END 2024-01-06 11:30 | disposition home or self-care (01) ==
LOC: HO.OT 10:30
PROVIDERS: PCP Internal Medicine; Visit Provider Orthopaedic Surgery
DX: M25.531 Pain in right wrist (principal); Z98.890 Other specified postprocedural states
CPT/HCPCS: 97033; 97110; 97140; 97165; 97166